=== PATIENT | male | born 1960 ===

== ENCOUNTER 2020-08-09 | Outpatient (CLI) | payer OTHER | END 2020-08-09 12:33 | disposition home or self-care (01) | LOC: PPH VACUNA | PROVIDERS: ATTEND Emergency Medicine Pediatric Emergency Medicine | DX: Z23 Encounter for immunization (principal) ==

== ENCOUNTER 2020-08-30 08:17 | Outpatient (CLI) | payer OTHER | END 2020-08-30 08:18 | disposition home or self-care (01) | LOC: PPH VACUNA 08:17 | PROVIDERS: ATTEND Emergency Medicine Pediatric Emergency Medicine | DX: Z23 Encounter for immunization (principal) ==

== ENCOUNTER 2022-03-21 13:05 | Outpatient (CLI) | payer OTHER | END 2022-03-21 13:15 | disposition home or self-care (01) | LOC: PPH VACUNA 13:05 | PROVIDERS: ATTEND Emergency Medicine Pediatric Emergency Medicine | DX: Z23 Encounter for immunization (principal) ==